=== PATIENT | female | born 1990 | race Hispanic/Latino ===

== ENCOUNTER 2020-04-24 19:25 | Emergency (ER) | payer SELFPAY ==
[~2020-04-24] VITALS: Ht 162.6 cm; Wt 113.4 kg
--- NOTE | 2020-04-24 20:08 | Emergency Department Note ---
History of Present Illnes History of Present Illness Chief Complaint: Extremity Trauma/Pain History of Present Illness This is a 30 year old female s/p 2 week ORIF Left leg at [facility] presents to the ED for leg wound which was present after stitches removed from site. Denies f/v or chills. Patient states that she was unable to afford medication. Arrival Mode: Car Onset (how long ago): week(s) (2) Location: left leg wound Severity: mild Onset quality: gradual Duration (how long): week(s) (2) Timing of current episode: constant Progression: worsening Context: Reports trauma/injury Relieving factors: none Exacerbating factors: none Associated symptoms: Reports nausea/vomiting Treatments prior to arrival: none Previous service: medications given, tests performed, one or more referrals, re-evaluation Past Medical/Family History Physician Review I have reviewed the patient's past medical and family history. Any updates have been documented here. Past Medical History Recent Fever: No Clinical Suspicion of Infectio: No New/Unexplained Change in Ment: No Social History Smoking Cessation: Never Smoker Alcohol Use: None Any Illegal Drug Use: No Review of Systems Review of Systems Constitutional: Denies fever EENTM: Reports no symptoms Cardiovascular: Reports no symptoms Respiratory: Reports no symptoms Gastrointestinal: Reports nausea Genitourinary: Reports no symptoms Musculoskeletal: Reports no symptoms Integumentary: Reports other (wound) Neurological: Reports no symptoms Psychological: Reports no symptoms Endocrine: Reports no symptoms Hematological/Lymphatic: Reports no symptoms Physical Exam Related Data Allergies: Coded Allergies: Penicillins (Verified Allergy, Intermediate, 04/24/20) haloperidol (Verified Allergy, Intermediate, 04/24/20) Triage Vital Signs Vital Signs Date Time Temp Pulse Resp B/P (MAP) Pulse Ox O2 Delivery O2 Flow Rate FiO2 04/24/20 19:55 99.0 60 18 134/82 100 Room Air Vital signs reviewed: Yes Physical Exam CONSTITUTIONAL Constitutional: Present well-developed, Present well-nourished HENT HENT: Present normocephalic, Present atraumatic, Present oropharynx tegan r/moist, Present nose normal HENT L/R: Present left ext ear normal, Present right ext ear normal EYES Eyes: Reports PERRL, Reports conjunctivae normal NECK Neck: Present ROM normal PULMONARY Pulmonary: Present effort normal, Present breath sounds normal CARDIOVASCULAR Cardiovascular: Present regular rhythm, Present heart sounds normal, Present capillary refill normal, Present normal rate GASTROINTESTINAL Abdominal: Present soft, Present nontender, Present bowel sounds normal GENITOURINARY Genitourinary: Present exam deferred SKIN Skin: Present other (Left leg wound 2 x 2 cm with serous drainage, good granulation base . No periwound erythema) MUSCULOSKELETAL Musculoskeletal: Present ROM normal NEUROLOGICAL Neurological: Present alert, Present oriented x 3, Present no gross motor or sensory deficits PSYCHOLOGICAL Psychological: Present mood/affect normal, Present judgement normal Results Imaging Imaging results reviewed: Yes Impressions [place] [id number] Patient Name: BALAJI GARCIA MR #: [id number] : 1990 Age/Sex: 30/F Req #: [id number] Adm Physician: Ordered by: MIKE POWER DO Report #: [id number] Location: ER Room/Bed: Procedure: [id number] DX/LOWER LEG LEFT Exam Date: 04/24/20 Exam Time: 2034 REPORT STATUS: Signed X-ray left leg/tibia and fibula. 2 views HISTORY: Pain. Leg pain COMPARISON: None available. FINDINGS: Bones: Intramedullary nail with proximal and distal screws transfix the subacute fracture of the distal third tibial shaft. No evidence of hardware fracture or loosening. Callus formation compatible with healing change. Normal alignment. Subacute fracture of the mid fibular shaft with callus formation compatible with healing change. Near-anatomic alignment. Joints: The joint spaces are well-maintained. Diffuse soft tissue swelling. IMPRESSION: Subacute healing fractures of the distal third tibial shaft and mid fibular shaft with uncomplicated appearing ORIF of the tibia. Diffuse soft tissue swelling. Signed by: Luis Daniel Davis MD on 04/24/2020 9:13 PM Dictated By: LUIS DANIEL DAVIS MD 12 Transcribed By: AMBER on 04/24/202112 COPY TO: MIKE POWER DO~ Assessment & Plan Medical Decision Making MDM Diff Dx : fx, dislocation, contusion, sprain, strain, osteomyelitis, cellulitis, wound Assessment & Plan Final Impression: (1) Postoperative wound infection MIKE POWER DO Apr 24, 2020 20:08
[2020-04-24] MEDS ORDERED: BACITRACIN ZINC 0.9GM TP ONE (20:15)
--- NOTE | 2020-04-24 21:16 | Diagnostic Imaging Report ---
X-ray left leg/tibia and fibula. 2 views HISTORY: Pain. Leg pain COMPARISON: None available. FINDINGS: Bones: Intramedullary nail with proximal and distal screws transfix the subacute fracture of the distal third tibial shaft. No evidence of hardware fracture or loosening. Callus formation compatible with healing change. Normal alignment. Subacute fracture of the mid fibular shaft with callus formation compatible with healing change. Near-anatomic alignment. Joints: The joint spaces are well-maintained. Diffuse soft tissue swelling. IMPRESSION: Subacute healing fractures of the distal third tibial shaft and mid fibular shaft with uncomplicated appearing ORIF of the tibia. Diffuse soft tissue swelling. Signed by: Luis Stephens MD on 04/24/2020 9:13 PM
--- OUTSIDE RECORDS SUMMARY | 2020-04-24 22:58 | XMS REPORT | Continuity of Care Document ---
Author Author [facility] t Organization [facility] Address [address] [place] [id number] Phone Unavailable Care Team Providers Care Dredge Mate Name Role Phone MIKE POWER Unavailable Problems This patient has no known problems. Allergies, Adverse Reactions, Alerts This patient has no known allergies or adverse reactions. Medications This patient has no known medications. Procedures This patient has no known procedures. Results Test Description Test Time Test Comments Results Result Comments Source LOWER LEG LEFT 2020-04-24 21:07:[address] [address] Patient Name: BALAJI GARCIA MR #: [id number] : 1990 Age/Sex: 30/F Req #: [id number] Adm Physician: Ordered by: MIKE POWER DO Report #: [id number] Location: ER Room/Bed: Procedure: [id number] DX/LOWER LEG LEFT Exam Date: 04/24/20 Exam Time: 2034 REPORT STATUS: Signed X-ray left leg/tibia and fibula. 2 views HISTORY: Pain. Leg pain COMPARISON: None available. FINDINGS: Bones: Intramedullary nail with proximal and distal screws transfix the subacute fracture of the distal third tibial shaft. No evidence of hardware fracture or loosening. Callus formation compatible with healing change. Normal alignment. Subacute fracture of the mid fibular shaft with callus formation compatible with healing change. Near-anatomic alignment. Joints: The joint spaces are well-maintained. Diffuse soft tissue swelling. IMPRESSION: Subacute healing fractures of the distal third tibial shaft and mid fibular shaft with uncomplicated appearing ORIF of the tibia. Diffuse soft tissue swelling. Signed by: Luis Daniel Davis MD on 04/24/2020 9:13 PM Dictated By: LUIS DANIEL DAVIS MD 12 Transcribed By: AMBER on 04/24/202112 COPY TO: MIKE POWER DO
== END 2020-04-24 21:39 | disposition home or self-care (01) ==
LOC: ER 20:04
DX: T81.49XA Infection following a procedure, other surgical site, initial encounter (principal); R50.9 Fever, unspecified; R11.2 Nausea with vomiting, unspecified
CPT/HCPCS: 99283